=== PATIENT | female | born 1960 | race Caucasian/White ===

== ENCOUNTER 2017-12-28 16:57 | Inpatient (IN) ==
[2017-12-28] MEDS ORDERED: SOLU-MEDROL 125 MG IVP SCH (18:00)
[2017-12-28] MEDS ORDERED: DEXTROSE 5%-1/2NS IV SOLUTION 1,000 ML IV SCH (18:00)
[2017-12-28] MEDS: XOPENEX 1.25 MG NEB SCH ×2 (18:27→23:48)
[2017-12-28] MEDS ORDERED: LEVAQUIN 100 ML IV ONE (18:33)
[2017-12-28] MEDS ORDERED: SOLU-CORTEF 250 MG ONE (18:33)
[2017-12-28] MEDS: PHENERGAN WITH CODEINE 6.25/10 MG/5 ML PO STA (18:41)
[2017-12-28] MEDS: SOLU-CORTEF 250 MG IVP SCH ×2 (18:45→21:45)
[2017-12-28] MEDS: LEVAQUIN 500 MG in PREMIX 100 ML D5W 1 BAG IV SCH (18:47)
[2017-12-28 19:53] VITALS: BMI 25.6
--- NOTE | 2017-12-28 20:03 | DI ---
EXAM: PA and lateral views of the chest HISTORY: Cough COMPARISON: 10/24/2010 FINDINGS: No focal consolidation, pleural effusion or pneumothorax is identified. A left lung calcified granul lashon is seen. The cardiomediastinal silhouette is within normal limits. There is calcified plaque of the aorta. IMPRESSION: No acute cardiopulmonary findings. Evidence of prior granulomatous infection.
[2017-12-28] MEDS ORDERED: TOPROL XL PO SCH (21:00)
[2017-12-28] MEDS ORDERED: TOPROL XL ONE (21:28)
[2017-12-28] MEDS: LEXAPRO PO SCH (21:30)
[2017-12-29] MEDS: PHENERGAN WITH CODEINE 6.25/10 MG/5 ML PO STA (00:57)
[2017-12-29] MEDS: SOLU-CORTEF 250 MG IVP SCH ×3 (04:43→21:10)
[2017-12-29] MEDS: XOPENEX 1.25 MG NEB SCH ×4 (05:01→22:28)
[2017-12-29] MEDS: SYNTHROID PO SCH (06:08)
[2017-12-29] MEDS: PRILOSEC PO SCH ×2 (06:08→17:22)
[2017-12-29] MEDS: PHENERGAN WITH CODEINE 6.25/10 MG/5 ML PO PRN ×3 (08:17→20:53)
[2017-12-29] MEDS ORDERED: SYNTHROID PO SCH (09:00)
--- NOTE | 2017-12-29 09:45 | PCM.PROG ---
Attending Provider: ATTENDING PROVIDER: Dr. CANDELARIO PEÑA This patient is seen with Maki Farr, Nurse Practitioner. DATE OF SERVICE: 12/29/17 SUBJECTIVE: This 57 year old WHITE/ F was hospitalized 12/28/17. The patient is sitting in bed alert. The patient did not sleep very well, still coughing. No fever. REVIEW OF SYSTEMS: CONSTITUTIONAL: Weakness. No night sweats. No malaise, lethargy. No fever or chills. HEENT: Eyes: No visual changes. No eye pain. No eye discharge. ENT: No runny nose. No epistaxis. No sinus pain. No odynophagia. No congestion. RESPIRATORY: Cough and congestion. No hemoptysis. No shortness of breath. CARDIOVASCULAR: No angina symptoms. No CHF symptoms. No atypical chest pain for CAD. No palpitations. No orthopnea.. GASTROINTESTINAL: No abdominal pain. No nausea or vomiting. No diarrhea or constipation. No hematemesis. No hematochezia. GENITOURINARY: No urgency. No frequency. No dysuria. No hematuria. No obstructive symptoms. No discharge. No pain. No significant abnormal bleeding. MUSCULOSKELETAL: No musculoskeletal pain; no joint swelling. NEUROLOGICAL: Awake, alert, oriented to time, place and person. No headache. No neck pain. No syncope. No seizures. No dizziness. PSYCHIATRIC: Not anxious. No depression. No suicidal thoughts. No homicidal thoughts. SKIN: No rash. No lesions. No wounds. ENDOCRINE: No unexplained weight loss. No weight gain. HEMATOLOGIC/LYMPHATIC: No anemia. No purpura. No petechiae. No prolonged or excessive bleeding. No palpable lymph nodes. PHYSICAL EXAMINATION: GENERAL: The patient is awake, alert and oriented, lying in bed in no distress. VITAL SIGNS: Temperature 97.9 F, Pulse 72, Respiratory Rate 18, BP 119/69, Pulse Ox 92% HEENT: Head normocephalic, atraumatic. Eyes: Extraocular muscles are intact. Pupils are equal, round and reactive to light and accommodation. Ears: No lesions. Nose appeared normal. Throat: No exudate or erythema. NECK: Supple. No JVD, no carotid bruit. No lymphadenopathy or thyromegaly. LUNGS: Diminished breath sounds bilaterally with creps on the right. Percussion note normal. Chest symmetrical. HEART: S1, S2, no S3. No murmurs. No cyanosis or clubbing. No ascites. Pulses: Dorsalis pedis and posterior tibial pulses +1 to +2 both sides. ABDOMEN: Soft. Non-tender. Bowel sounds active. No CVA tenderness. No mass felt. EXTREMITIES: No edema. Full range of motion of all extremities, equal. NEUROLOGIC: No focal deficit. Cranial nerves II through XII are grossly intact. No headache, no double vision or headache. SKIN: Not dry. Intact. Turgor-normal. LYMPHATIC: No palpable lymph nodes/no lymphedema. MUSCULOSKELETAL: Normal joints with no swelling. Muscle tone is normal. LAB REVIEW: 12/29/17 04:30 12/29/17 04:30 12/29/17 04:30: Sodium 140, Potassium 4.1, Chloride 105, Carbon Dioxide 22, Anion Gap 17.1, BUN 12, Creatinine 0.91, Estimated GFR (MDRD) 64.00, BUN/ Creatinine Ratio 13.18, Glucose 141 H, Calcium 9.3, Total Bilirubin 0.3, AST 19 , ALT 27, Alkaline Phosphatase 56, Total Protein 7.7, Albumin 3.8, Globulin 3.9 , Albumin/Globulin Ratio 0.97, Triglycerides 96, Cholesterol 188, LDL Cholesterol, Calc 122, VLDL Cholesterol 19, HDL Cholesterol 47, Cholesterol/HDL Ratio 4.0 L, TSH 0.376, Free T4 0.90 12/29/17 04:30: WBC 3.53 L, RBC 3.91 L, Hgb 11.9 L, Hct 34.6 L, MCV 88.5, MCH 30.4, MCHC 34.4, RDW Coeff of Luis 12.2, Plt Count 186, Neutrophils % (Manual) 71.0, Lymphocytes % (Manual) 18.0, Monocytes % (Manual) 9.0, Reactive Lymphocytes 2.0, Plt Morphology Comment Normal, Anisocytosis Not present, RBC Morph Comment Normal 12/28/17 18:09: Sodium 140, Potassium 4.0, Chloride 104, Carbon Dioxide 23, Anion Gap 17.0, BUN 14, Creatinine 0.98, Estimated GFR (MDRD) 58.00, BUN/ Creatinine Ratio 14.28, Glucose 107, Calcium 9.8, Total Bilirubin 0.4, AST 25, ALT 29, Alkaline Phosphatase 61, Total Protein 8.0, Albumin 4.3, Globulin 3.7, Albumin/Globulin Ratio 1.16 12/28/17 18:09: WBC 4.97, RBC 4.15 L, Hgb 12.7, Hct 36.8 L, MCV 88.7, MCH 30.6, MCHC 34.5, RDW Coeff of Luis 12.3, Plt Count 187, Neutrophils % (Manual) 52.0, Band Neutrophils % 3.0, Lymphocytes % (Manual) 27.0, Monocytes % (Manual) 13.0 H , Eosinophils % (Manual) 3.0, Reactive Lymphocytes 2.0, Anisocytosis Not present ASSESSMENT: 1. ACUTE PNEUMONITIS 2. GENERALIZED WEAKNESS 3. DEHYDRATION PLAN: 1. Ativan 1 mg q.h.s. 2. Continue IV steroids and antibiotics Plan and coordination of the patient's care discussed in the presence of Scientific Informatics Analyst and nurse. CONDITION: Stable SCRIBED BY: DEANNE MARCUS Communications Equipment Operator scribed while in presence of service performed by Dr. Peña/Maki Farr APRN on 12/29/17 ([id number])
[2017-12-29] MEDS: LOPRESSOR PO SCH ×2 (10:04→21:01)
[2017-12-29] MEDS: LEVAQUIN 500 MG in PREMIX 100 ML D5W 1 BAG IV SCH (10:04)
[2017-12-29] MEDS: LEXAPRO PO SCH (21:00)
[2017-12-29] MEDS: ATIVAN PO SCH (21:00)
[2017-12-30] MEDS: XOPENEX 1.25 MG NEB SCH ×4 (04:50→23:15)
[2017-12-30] MEDS: SOLU-CORTEF 250 MG IVP SCH (05:48)
[2017-12-30] MEDS: SYNTHROID PO SCH (05:49)
[2017-12-30] MEDS: PRILOSEC PO SCH ×2 (05:49→17:34)
[2017-12-30] MEDS: PHENERGAN WITH CODEINE 6.25/10 MG/5 ML PO PRN ×3 (05:55→22:28)
--- NOTE | 2017-12-30 08:38 | PCM.PROG ---
Attending Provider: ATTENDING PROVIDER: Dr. CANDELARIO PEÑA This patient is seen with Maki Farr, Nurse Practitioner. DATE OF SERVICE: 12/30/17 SUBJECTIVE: This 57 year old WHITE/ F was hospitalized 12/28/17. The patient is lying in bed, alert. She did sleep last night. Coughing and shortness of breath is somewhat improved at rest. She is still short of breath with exertion. Appetite is slowly beginning to improve. She had fever last night. REVIEW OF SYSTEMS: CONSTITUTIONAL: Weakness. No night sweats. No malaise, lethargy. No fever or chills. HEENT: Eyes: No visual changes. No eye pain. No eye discharge. ENT: No runny nose. No epistaxis. No sinus pain. No odynophagia. No congestion. RESPIRATORY: Cough and congestion. No hemoptysis. Shortness of breath with exertion. CARDIOVASCULAR: No angina symptoms. No CHF symptoms. No atypical chest pain for CAD. No palpitations. No orthopnea.. GASTROINTESTINAL: Appetite improving. No abdominal pain. No nausea or vomiting. No diarrhea or constipation. No hematemesis. No hematochezia. GENITOURINARY: No urgency. No frequency. No dysuria. No hematuria. No obstructive symptoms. No discharge. No pain. No significant abnormal bleeding. MUSCULOSKELETAL: No musculoskeletal pain; no joint swelling. NEUROLOGICAL: Awake, alert, oriented to time, place and person. No headache. No neck pain. No syncope. No seizures. No dizziness. PSYCHIATRIC: Not anxious. No depression. No suicidal thoughts. No homicidal thoughts. SKIN: No rash. No lesions. No wounds. ENDOCRINE: No unexplained weight loss. No weight gain. HEMATOLOGIC/LYMPHATIC: No anemia. No purpura. No petechiae. No prolonged or excessive bleeding. No palpable lymph nodes. PHYSICAL EXAMINATION: GENERAL: The patient is awake, alert and oriented, lying in bed in no distress. VITAL SIGNS: Temperature 97.7 F, Pulse 77, Respiratory Rate 20, BP 118/67, Pulse Ox 97% HEENT: Head normocephalic, atraumatic. Eyes: Extraocular muscles are intact. Pupils are equal, round and reactive to light and accommodation. Ears: No lesions. Nose appeared normal. Throat: No exudate or erythema. NECK: Supple. No JVD, no carotid bruit. No lymphadenopathy or thyromegaly. LUNGS: Diminished breath sounds bilaterally. Rales on right improving. Percussion note normal. Chest symmetrical. HEART: S1, S2, no S3. No murmurs. No cyanosis or clubbing. No ascites. Pulses: Dorsalis pedis and posterior tibial pulses +1 to +2 both sides. ABDOMEN: Soft. Non-tender. Bowel sounds active. No CVA tenderness. No mass felt. EXTREMITIES: No edema. Full range of motion of all extremities, equal. NEUROLOGIC: No focal deficit. Cranial nerves II through XII are grossly intact. No headache, no double vision or headache. SKIN: Not dry. Intact. Turgor-normal. LYMPHATIC: No palpable lymph nodes/no lymphedema. MUSCULOSKELETAL: Normal joints with no swelling. Muscle tone is normal. LAB REVIEW: 12/30/17 04:15 12/30/17 04:15 12/30/17 04:15: Sodium 141, Potassium 4.7, Chloride 108 H, Carbon Dioxide 22, Anion Gap 15.7, BUN 13, Creatinine 0.79, Estimated GFR (MDRD) 75.00, BUN/ Creatinine Ratio 16.45, Glucose 119 H, Calcium 9.3, Total Bilirubin 0.2, AST 19 , ALT 25, Alkaline Phosphatase 47, Total Protein 7.2, Albumin 3.7, Globulin 3.5 , Albumin/Globulin Ratio 1.06 12/30/17 04:15: WBC 7.28, RBC 3.79 L, Hgb 11.5 L, Hct 33.9 L, MCV 89.4, MCH 30.3 , MCHC 33.9, RDW Coeff of Luis 12.4, Plt Count 194, Neutrophils % (Manual) 76.0 H , Lymphocytes % (Manual) 19.0, Monocytes % (Manual) 3.0, Basophils % (Manual) 2.0 H, Anisocytosis Not present ASSESSMENT: 1. ACUTE PNEUMONITIS WITH SHORTNESS OF BREATH IMPROVING 2. GENERALIZED WEAKNESS 3. DEHYDRATION, RESOLVED PLAN: 1. Prednisone 20 b.i.d. 2. Ativan 1 mg h.s. 3. D/C Solu-Cortef 4. Continue nebs and IV Levaquin 5. Anticipate d/c home tomorrow Plan and coordination of the patient's care discussed in the presence of Print Finisher and nurse. CONDITION: Stable SCRIBED BY: DEANNE MARCUS, District Gauger scribed while in presence of service performed by Dr. Peña/Maki Farr APRN on 12/30/17 ([id number])
[2017-12-30] MEDS: LEVAQUIN 500 MG in PREMIX 100 ML D5W 1 BAG IV SCH (08:55)
[2017-12-30] MEDS: LOPRESSOR PO SCH ×2 (08:55→21:28)
--- NOTE | 2017-12-30 14:44 | PN ---
DATE OF SERVICE: 12/29/17 SUBJECTIVE: The patient was seen and examined with Nurse Practitioner. She is hospitalized with severe dehydration and acute bronchitis. The patient's condition has improved a lot. PHYSICAL EXAMINATION: HEENT: Head normocephalic, atraumatic. Eyes: Extraocular muscles are intact. Pupils are equal, round and reactive to light and accommodation. Ears: No lesions. Nose appeared normal. Throat: No exudate or erythema. NECK: Supple. No JVD, no carotid bruit. No lymphadenopathy or thyromegaly. LUNGS: Decreased breath sounds but air entry. Clear to auscultation. Percussion note normal. Chest symmetrical. HEART: S1, S2, no S3. No murmurs. No cyanosis or clubbing. No ascites. Pulses: Dorsalis pedis and posterior tibial pulses +1 to +2 both sides. ABDOMEN: Soft. Nontender. Bowel sounds active. No CVA tenderness. No mass felt. EXTREMITIES: No edema. Full range of motion of all extremities, equal. NEUROLOGIC: No focal deficit. Cranial nerves II through XII are grossly intact. No headache, no double vision or headache. SKIN: Not dry. Intact. Turgor - improved. LYMPHATIC: No palpable lymph nodes/no lymphedema. MUSCULOSKELETAL: Normal joints with no swelling. Muscle tone is normal. PLAN: 1. Continue NEBS treatment 2. Steroids 3. Antibiotics TIME SPENT: More than 30 minutes. Plan and coordination of the patient's care discussed in the presence of nurse. SUNIL
[2017-12-30] MEDS: PREDNISONE PO SCH (17:34)
[2017-12-30] MEDS: ATIVAN PO SCH (21:28)
[2017-12-30] MEDS: LEXAPRO PO SCH (21:28)
[2017-12-31] MEDS: XOPENEX 1.25 MG NEB SCH (05:00)
[2017-12-31] MEDS: PHENERGAN WITH CODEINE 6.25/10 MG/5 ML PO PRN (05:38)
[2017-12-31] MEDS: PRILOSEC PO SCH (05:38)
[2017-12-31] MEDS: SYNTHROID PO SCH (05:39)
[2017-12-31 06:02] VITALS: BP 122/68; TEMP 98
[2017-12-31] MEDS: PREDNISONE PO SCH (08:20)
[2017-12-31] MEDS: LOPRESSOR PO SCH (08:20)
[2017-12-31] MEDS: LEVAQUIN 500 MG in PREMIX 100 ML D5W 1 BAG IV SCH (08:20)
--- NOTE | 2017-12-31 09:00 | CM.DICTOOL ---
ADMISSION: 12/28/17 16:57 DISCHARGE: 12/31/17 FINAL DIAGNOSIS ACUTE BRONCHITIS - IMPROVING ACUTE PNEUMONITIS WITH DYSPNEA - IMPROVING DEHYDRATION - RESOLVED HYPERTENSION GERD HYPOTHYROID IBS ANXIETY HYSTERECTOMY LAST VITALS Temp Pulse Resp BP Pulse Ox 98.0 F 79 16 122/68 97 12/31/17 06:00 12/31/17 06:00 12/31/17 06:00 12/31/17 06:00 12/31/17 06:00 CONTINUE THESE MEDICATIONS AT HOME Escitalopram Oxalate (Lexapro) 10 mg PO BEDTIME [facility] Last Admin: 12/30/17 21:28 Dose: 10 mg Levothyroxine Sodium (Synthroid) 75 mcg PO QDAC [facility] Last Admin: 12/31/17 05:39 Dose: 75 mcg Lorazepam (Ativan) 1 mg PO BEDTIME [facility] Last Admin: 12/30/17 21:28 Dose: 1 mg Metoprolol Tartrate (Lopressor) 25 mg PO BID [facility] Last Admin: 12/31/17 08:20 Dose: 25 mg Omeprazole (Prilosec) 20 mg PO BIDAC [facility] Last Admin: 12/31/17 05:38 Dose: 20 mg Promethazine HCl/Codeine (Phenergan With Codeine 6.25/10 Mg/5 Ml) 10 ml PO Q6H PRN PRN Reason: Cough Last Admin: 12/31/17 05:38 Dose: 10 ml LEVAQUIN 500 MG PO DAILY X 7 DAYS - NEW PREDNISONE 20 MG PO BID X 2 DAYS THEN DAILY X 5 DAYS - NEW DISCONTINUED MEDICATIONS: NONE ALLERGIES azithromycin Adverse Reaction (Verified 12/28/17 18:26) cefaclor [From Ceclor] Adverse Reaction (Verified 12/28/17 18:07) Cephalosporins Adverse Reaction (Verified 12/28/17 18:07) clarithromycin [From Biaxin] Adverse Reaction (Verified 12/28/17 18:07) ezetimibe [From Vytorin] Adverse Reaction (Verified 12/28/17 18:07) fenofibrate [From Tricor] Adverse Reaction (Verified 12/28/17 18:07) niacin [From Niaspan Extended-Release] Adverse Reaction (Verified 12/28/17 18:26 ) Penicillins Adverse Reaction (Verified 12/28/17 18:07) rosuvastatin [From Crestor] Adverse Reaction (Verified 12/28/17 18:07) simvastatin [From Vytorin] Adverse Reaction (Verified 12/28/17 18:07) Rzyuaoi-Kfy-Ujr Reductase Inhibitor Adverse Reaction (Verified 12/28/17 18:07) Sulfa (Sulfonamide Antibiotics) Adverse Reaction (Verified 12/28/17 18:07) topiramate [From Topamax] Adverse Reaction (Verified 12/28/17 18:07) NEW PRESCRIPTIONS: NEW MEDICATIONS: 1. LEVAQUIN 500MG TAKE 1 TABLET DAILY X 7 DAYS. TAKE UNTIL GONE. 2. PREDNISONE TAKE 1 TABLET 2 TIMES A DAY FOR 2 DAYS THEN TAKE 1 TABLET DAILY FOR 5 DAYS. TAKE WITH FOOD. SMOKING: N/A; AVOID SECOND HAND SMOKE. DISEASE SPECIFIC EDUCATION: BRONCHITIS PNEUMONIA MEDICATIONS STEROIDS FLUID INTAKE TO AVOID DEHYDRATION IMPORTANCE OF REST LAB REVIEW: 12/31/17 04:30 12/31/17 04:30 12/31/17 04:30: Sodium 142, Potassium 4.2, Chloride 108 H, Carbon Dioxide 23, Anion Gap 15.2, BUN 15, Creatinine 0.78, Estimated GFR (MDRD) 76.00, BUN/ Creatinine Ratio 19.23, Glucose 103, Calcium 9.1, Total Bilirubin 0.2, AST 16, ALT 21, Alkaline Phosphatase 48, Total Protein 6.8, Albumin 3.6, Globulin 3.2, Albumin/Globulin Ratio 1.13 12/31/17 04:30: WBC 9.98, RBC 3.63 L, Hgb 11.1 L, Hct 33.1 L, MCV 91.2, MCH 30.6 , MCHC 33.5, RDW Coeff of Luis 12.6, Plt Count 209, Immature Gran % (Auto) 1.9, Neut % (Auto) 75.9, Lymph % (Auto) 16.1, Park % (Auto) 5.9, Eos % (Auto) 0.0, Baso % (Auto) 0.2, Immature Gran # (Auto) 0.2, Neut # (Auto) 7.6 H, Lymph # ( Auto) 1.6, Park # (Auto) 0.6, Eos # (Auto) 0.0, Baso # (Auto) 0.0 PLAN: DISCHARGE HOME TODAY 12/31/17. CONTINUE HOME MEDICATIONS PER NURSING SHEETS. NEW MEDICATIONS: 1. LEVAQUIN 500MG TAKE 1 TABLET DAILY X 7 DAYS. TAKE UNTIL GONE. 2. PREDNISONE TAKE 1 TABLET 2 TIMES A DAY FOR 2 DAYS THEN TAKE 1 TABLET DAILY FOR 5 DAYS. TAKE WITH FOOD. DIET TOLERATED. ACTIVITY REST AT HOME. MAY RETURN TO WORK ON Thursday01/11/18. FOLLOW UP WITH DR. PEÑA NEXT WEEK. CALL FOR APPOINTMENT [phone]. PATIENT IS A FULL CODE. ALERT AND ORIENTED X 4. STATES SLEPT WELL. Lorri MARTINEZ APRN INTO SEE PATIENT. PATIENT STATES IS READY TO GO HOME TODAY. PLAN OF CARE DISCUSSED PER Lorri MARTINEZ APRN INCLUDING DISCHARGE INSTRUCTIONS OF ABX THERAPY, STEROIDS, RESTING AT HOME AND NO WORK UNTIL THURSDAY. PATIENT VERBALIZES UNDERSTANDING AND AGREEMENT. APPETITE IS GOOD. VITAL SIGNS ARE STABLE. HAS BEEN AFEBRILE. POX 97% ON ROOM AIR. HEART TONES ARE REGULAR. NO C/O PAIN OR DISCOMFORT. LUNGS ARE CLEAR WITH DIMINISHED BREATH SOUNDS. HAS NON-PRODUCTIVE COUGH. IS DYSPNEIC WITH ACTIVITY. ABDOMEN IS SOFT, NON-TENDER WITH BOWEL SOUNDS POSITIVE IN ALL 4 QUADS. LAST BM . PEDAL PULSES POSITIVE WITHOUT EDEMA. HAS SALINE LOCK IN LEFT WRIST SITE IS CLEAR. IS INDEPENDENT WITH ACTIVITY OF DAILY LIVING. CANDELARIO PEÑA MD Lorri MARTINEZ APRN
--- NOTE | 2018-01-01 11:10 | PN ---
DATE OF SERVICE: 12/31/17 SUBJECTIVE: The patient is examined and she says that she slept well last night and yesterday evening she was able to eat an actual full supper. She has been up and about in the room with minimal shortness of breath. She states that she feels like she can go home. Her oxygen saturation has been good and coughing is slightly improved. REVIEW OF SYSTEMS: CONSTITUTIONAL: No night sweats. No fatigue, malaise, lethargy. No fever or chills. Weakness. HEENT: Eyes: No visual changes. No eye pain. No eye discharge. ENT: No runny nose. No epistaxis. No sinus pain. No sore throat. No odynophagia. No congestion. RESPIRATORY: Cough, no congestion. No hemoptysis. Shortness of breath as resolved. CARDIOVASCULAR: No angina symptoms. No CHF symptoms. No atypical chest pain for CAD. No palpitations. No orthopnea. GASTROINTESTINAL: No abdominal pain. No nausea or vomiting. No diarrhea or constipation. No hematemesis. No hematochezia. GENITOURINARY: No urgency. No frequency. No dysuria. No hematuria. No obstructive symptoms. No discharge. No pain. No significant abnormal bleeding. MUSCULOSKELETAL: No musculoskeletal pain; no joint swelling. NEUROLOGICAL: No headache. No neck pain. No syncope. No seizures. No dizziness. PSYCHIATRIC: Not anxious. No depression. No suicidal thoughts. No homicidal thoughts. SKIN: No rash. No lesions. No wounds. ENDOCRINE: No unexplained weight loss. No weight gain. HEMATOLOGIC/LYMPHATIC: No anemia. No purpura. No petechiae. No prolonged or excessive bleeding. No palpable lymph nodes. PHYSICAL EXAMINATION: HEENT: Head normocephalic, atraumatic. Eyes: Extraocular muscles are intact. Pupils are equal, round and reactive to light and accommodation. Ears: No lesions. Nose appeared normal. Throat: No exudate or erythema. NECK: Supple. No JVD, no carotid bruit. No lymphadenopathy or thyromegaly. LUNGS: Diminished breath sounds bilaterally otherwise normal. Clear to auscultation. Percussion note normal. Chest symmetrical. HEART: S1, S2, no S3. No murmurs. No cyanosis or clubbing. No ascites. Pulses: Dorsalis pedis and posterior tibial pulses +1 to +2 both sides. ABDOMEN: Soft. Nontender. Bowel sounds active. No CVA tenderness. No mass felt. EXTREMITIES: No edema. Full range of motion of all extremities, equal. NEUROLOGIC: No focal deficit. Cranial nerves II through XII are grossly intact. No headache, no double vision or headache. SKIN: Not dry. Intact. Turgor - normal. LYMPHATIC: No palpable lymph nodes/no lymphedema. MUSCULOSKELETAL: Normal joints with no swelling. Muscle tone is normal. ASSESSMENT: 1. Acute pneumonitis 2. Shortness of breath with exertion 3. Generalized weakness. PLAN: 1. Will discharge home 2. She will go home on Levaquin 500mg PO daily for the next 7 days 3. Prednisone 20mg twice a a day for the next 3 days and then daily for he next 4 days 4. She is instructed to stay inside. 5. She has Phenergan with codeine cough syrup 6. Will followup with her next week in the office. TIME SPENT: More than 30 minutes. Plan and coordination of the patient's care discussed in the presence of nurse. SUNIL
--- NOTE | 2018-01-01 12:26 | DS ---
DATE OF SERVICE: 12/31/17 FINAL DIAGNOSIS: 1. Acute Bronchitis-improving 2. Acute pneumonitis with Dyspnea-improving 3. Dehydration-resolved 4. Hypertension 5. GERD 6. Hypothyroidism 7. IBS 8. Anxiety 9. Hysterectomy LAST VITALS: Temperature 98, pulse 79, Respiratory 16, blood pressure 122/68 and pulse ox 97% . DISCHARGE INSTRUCTIONS: Discharge home today. Continue home medications per nursing sheets. Followup with Dr. Alvarado Next week. Call for Appointment. MEDICATIONS AT DISCHARGE: Lexapro 10mg PO bedtime Synthroid 75mcg PO QDAC Ativan 1mg PO bedtime Lopressor 25mg Po twice a day Prilosec 20mg PO twice a day Phenergan with Codeine 6.25/10mg/5ML 10ml PO Q 6 hours PRN Levaquin 500mg PO daily x7 days Prednisone 20mg PO twice a day x2 days then daily x5 days ALLERGIES: Azithromycin Cefaclor Cephalosporin Clarithromycin Exetimibe Fenofibrate Niacin Penicillins Rosuvastatin Simvastatin Statins Sulfa Topiramate NEW PRESCRIPTIONS: Levaquin 500mg take one tablet daily x7 days. Take until gone Prednisone take one tablet two times a day for 2 days then take one tablet daily for 5 days. Take with food. DIET INSTRUCTIONS: As tolerated ACTIVITY: Rest at home. May return to work on Thursday01/11/18 SMOKING: N/A avoid second hand smoke. DISEASE SPECIFIC EDUCATION: Bronchitis Pneumonia Medication Steroids Fluid intake to avoid dehydration Importance of rest HOSPITAL COURSE: This is a 57 year old white female who is a direct admit from our office. She had been treated as an outpatient with acute bronchitis and put on oral Prednisone and Z-baldemar. She presented to our office with worsening cough and congestion. She had temperature of 101 and clinically presented with pneumonia with rales on the right side. She had been shortness of breath with exertion and unable to eat or drink due to nausea. She was admitted and placed on Levaquin 500mg IV daily along with Solu-Cortef 125mg IV Q 8 hours. Started on Xopenex NEB treatments Q 6 hours. IV fluids normal saline at 100cc an hour and given Tylenol PRN for fever. She did have a fever for the first two days up to 100 for the past 24 hours it has resolved. Her cough has somewhat improved. She was very short of breath with exertion and very weak on admission. Over the past two days this is slightly improved. Yesterday evening she stated she was able to get up and about in the her without any shortness of breath and no oxygen. She has been able to rest well with the help of cough syrup. She states that she feels the nebulization treatments have helps significantly. Yesterday due to her improvement I did make her Prednisone PO 20mg twice a day and discontinued IV Solu-Cortef and she did tolerated this well. IV Levaquin seems to have helped her improve. Today she is in stable condition and WBC is now normal at 9.9, hgb 11.1, hct 33.1, sodium 142, potassium 4.2, BUN 15, creatinine 0.78. Her dehydration has resolved and shortness of breath significantly improved. She is going to be discharged home in stable condition with Levaquin 500mg PO daily for the next 7 days, Prednisone 20mg PO twice a day for 3 days and then daily times four days. She has cough medicine at home. She is instructed to stay inside in the cool and continue with increased rest. Return if fever returns. Will followup with her next week in the office. TIME SPENT: More than 60 minutes. SUNIL
== END 2017-12-31 09:52 | disposition home or self-care (01) | DRG 202 ==
LOC: MEDSURG A 16:57
PROVIDERS: ADMIT Internal Medicine; ATTEND Internal Medicine
DX: J20.9 Acute bronchitis, unspecified (principal); J18.9 Pneumonia, unspecified organism; R50.9 Fever, unspecified; R06.00 Dyspnea, unspecified; E86.0 Dehydration; R53.1 Weakness; I10 Essential (primary) hypertension; K21.9 Gastro-esophageal reflux disease without esophagitis; E03.9 Hypothyroidism, unspecified; K58.9 Irritable bowel syndrome, unspecified; F41.9 Anxiety disorder, unspecified; Z79.899 Other long term (current) drug therapy
CPT/HCPCS: 36415; 80053; 80061; 84439; 84443; 85007; 85025; 86713; 86738; 93005; 93010; 94640

== ENCOUNTER 2018-11-04 12:37 | Observation (INO) ==
[2018-11-04 13:05] VITALS: BMI 25.4
[2018-11-04] MEDS ORDERED: ZOFRAN 4 MG/2 ML IVP PRN (13:19)
[2018-11-04] MEDS ORDERED: LOMOTIL PO PRN (13:19)
[2018-11-04] MEDS ORDERED: SODIUM CHLORIDE 1,000 ML IV SCH (13:30)
[2018-11-04] MEDS: PROTONIX IV IVP SCH (13:30)
--- NOTE | 2018-11-04 15:24 | CT ---
EXAM: CT of the abdomen pelvis with and without contrast History: Abdominal pain with nausea and vomiting. Comparison: CT abdomen pelvis 11/26/2012 Technique: Multiplanar CT images through the abdomen pelvis were obtained with and without the admin istration of IV contrast Findings: Lung bases are free of consolidation. Calcified granuloma within the left lower lobe. No acute osseous abnormalities. No renal stones and no hydronephrosis. No ureteral calculi. No renal masses. No gallstones identified by CT. Calcified granulomas within the spleen. No liver lesions. Atherosclerotic vascular calcifications. Pancreas is unremarkable. Adrenal glands are unr emarkable. No bowel obstruction. No bladder wall thickening. The appendix is normal. No perirecta l inflammation. Nondilated fluid filled loops of small bowel. There are several small sub-centimete r mesenteric lymph nodes. No pathologically enlarged lymph nodes. Uterus is not seen and likely has been surgically removed. Impression: Multiple small mesenteric lymph nodes could be reactive from a mild enteritis or indicat e mesenteric adenitis. There is no bowel obstruction.
--- NOTE | 2018-11-04 15:47 | DI ---
Exam: Two views of the chest. Comparison: Chest x-ray performed 12/18/2017. Reason for exam: Cough. FINDINGS: No pneumothorax, pleural effusion, or focal consolidation. The cardiac silhouette is unch anged. The imaged osseous structures appear grossly unremarkable without acute fracture. Impression: No acute cardiopulmonary process.
[2018-11-04] MEDS: LIBRAX 5/2.5 MG PO SCH (16:40)
[2018-11-04] MEDS: SODIUM CHLORIDE 0.9%-KCL 40MEQ 1,000 ML IV SCH (19:23)
[2018-11-04] MEDS: LOPRESSOR PO SCH (20:32)
[2018-11-04] MEDS ORDERED: NON-FORMULARY MEDICATION (Melatonin [Melatonin] 5 MG) PO SCH (21:00)
[2018-11-04] MEDS ORDERED: BENADRYL PO SCH (21:00)
[2018-11-04] MEDS ORDERED: LEXAPRO PO SCH ×2 (21:00)
[2018-11-05] MEDS: SODIUM CHLORIDE 0.9%-KCL 40MEQ 1,000 ML IV SCH (05:04)
[2018-11-05] MEDS: LIBRAX 5/2.5 MG PO SCH (05:44)
[2018-11-05] MEDS ORDERED: PRILOSEC PO SCH (06:30)
[2018-11-05] MEDS ORDERED: SYNTHROID PO SCH (06:30)
[2018-11-05] MEDS ORDERED: MULTIVITAMIN TABLET PO SCH (08:00)
[2018-11-05] MEDS: LOPRESSOR PO SCH (09:00)
[2018-11-05] MEDS ORDERED: NON-FORMULARY MEDICATION (Multivitamin 1 CAP) PO SCH (09:00)
[2018-11-05] MEDS: PROTONIX IV IVP SCH (09:16)
--- NOTE | 2018-11-05 09:16 | PCM.PROG ---
Attending Provider: ATTENDING PROVIDER: Dr. CANDELARIO PEÑA DATE OF SERVICE: 11/05/18 SUBJECTIVE: This 57 year old WHITE/ F was hospitalized 11/04/18 with acute gastroenteritis and dehydration. The patient had nausea and vomiting times 5 days prior to admission and was dehydrated with dry skin, dry mucus membranes. Hydration status improved. No diarrhea since hospitalization and no vomiting but hasn't eaten much. She is on IV fluids with potassium supplement. REVIEW OF SYSTEMS: CONSTITUTIONAL: No night sweats. No fatigue, malaise, lethargy. No fever or chills. HEENT: Eyes: No visual changes. No eye pain. No eye discharge. ENT: No runny nose. No epistaxis. No sinus pain. No odynophagia. No congestion. RESPIRATORY: No cough, no congestion. No hemoptysis. No shortness of breath. CARDIOVASCULAR: No angina symptoms. No CHF symptoms. No atypical chest pain for CAD. No palpitations. No orthopnea.. GASTROINTESTINAL: No abdominal pain. Mild nausea. No vomiting. No diarrhea or constipation. No hematemesis. No hematochezia. GENITOURINARY: No urgency. No frequency. No dysuria. No hematuria. No obstructive symptoms. No discharge. No pain. No significant abnormal bleeding. MUSCULOSKELETAL: No musculoskeletal pain; no joint swelling. NEUROLOGICAL: Awake, alert, oriented to time, place and person. No headache. No neck pain. No syncope. No seizures. No dizziness. PSYCHIATRIC: Not anxious. No depression. No suicidal thoughts. No homicidal thoughts. SKIN: No rash. No lesions. No wounds. ENDOCRINE: No unexplained weight loss. No weight gain. HEMATOLOGIC/LYMPHATIC: No anemia. No purpura. No petechiae. No prolonged or excessive bleeding. No palpable lymph nodes. PHYSICAL EXAMINATION: GENERAL: The patient is awake, alert and oriented, lying in bed in no distress. VITAL SIGNS: Temperature 98.1 F, Pulse 62, Respiratory Rate 18, BP 161/77, Pulse Ox 98% HEENT: Head normocephalic, atraumatic. Eyes: Extraocular muscles are intact. Pupils are equal, round and reactive to light and accommodation. Ears: No lesions. Nose appeared normal. Throat: No exudate or erythema. NECK: Supple. No JVD, no carotid bruit. No lymphadenopathy or thyromegaly. LUNGS: Clear to auscultation. Percussion note normal. Chest symmetrical. HEART: S1, S2, no S3. No murmurs. No cyanosis or clubbing. No ascites. Pulses: Dorsalis pedis and posterior tibial pulses +1 to +2 both sides. ABDOMEN: Soft. Non-tender. Bowel sounds active. No CVA tenderness. No mass felt. EXTREMITIES: No edema. Full range of motion of all extremities, equal. NEUROLOGIC: No focal deficit. Cranial nerves II through XII are grossly intact. No headache, no double vision or headache. SKIN: Warm and dry. Intact. Turgor-normal. LYMPHATIC: No palpable lymph nodes/no lymphedema. MUSCULOSKELETAL: Normal joints with no swelling. Muscle tone is normal. LAB REVIEW: 11/04/18 13:40 11/04/18 13:40 11/04/18 19:12: Urine Color Yellow, Urine Clarity Clear, Urine pH 6.0, Ur Specific [place] <=1.005, Urine Protein Negative, Urine Glucose (UA) Negative, Urine Ketones Negative, Urine Blood 1+, Urine Nitrite Negative, Urine Bilirubin Negative, Urine Urobilinogen 0.2, Ur Leukocyte Esterase Negative, Urine Microscopic RBC 0-2, Ur Squamous Epith Cells 0-2 11/04/18 13:40: Sodium 137.5, Potassium 3.33 L, Chloride 100.5, Carbon Dioxide 26.2, Anion Gap 14.13, BUN 15.4, Creatinine 0.86, Estimated GFR (MDRD) 68.00, BUN/Creatinine Ratio 17.90, Glucose 92.1, Calcium 9.06, Total Bilirubin 0.40, AST 58.1 H, ALT 57.3 H, Alkaline Phosphatase 58.6, Total Protein 8.09, Albumin 4.73, Globulin 3.36, Albumin/Globulin Ratio 1.40 11/04/18 13:40: WBC 4.66, RBC 4.36, Hgb 13.0, Hct 37.5, MCV 86.0, MCH 29.8, MCHC 34.7, RDW Coeff of Luis 12.3, Plt Count 212, Immature Gran % (Auto) 0.4, Neut % (Auto) 46.0, Lymph % (Auto) 29.6, [place] % (Auto) 22.7 H, Eos % (Auto) 0.9 , Baso % (Auto) 0.4, Immature Gran # (Auto) 0.0, Neut # (Auto) 2.1, Lymph # ( Auto) 1.4, [place] # (Auto) 1.1, Eos # (Auto) 0.0, Baso # (Auto) 0.0 ASSESSMENT: 1. Acute gastroenteritis seems to be resolving. PLAN: 1. Regular diet. Watch how she does with breakfast and lunch and advised to be up and about and very likely will be discharged this afternoon. Plan and coordination of the patient's care discussed in the presence of Music Publisher and nurse. CONDITION: Stable SCRIBED BY: DEANNE MARCUS Tenant Relations Coordinator scribed while in presence of service performed by Dr. CANDELARIO PEÑA on 11/05/18 ([id number])
[2018-11-05 10:28] VITALS: BP 162/70; TEMP 98.2
--- NOTE | 2018-11-05 11:14 | PN ---
DATE OF SERVICE: 11/04/18 SUBJECTIVE: The patient was seen and examined with the nurse practitioner. The patient is admitted with severe gastroenteritis. She will be hydrated, have stool cultures and will also do CT scan of the abdomen. CONDITION: Stable. TIME SPENT: More than 30 minutes. Plan and coordination of the patient's care discussed in the presence of nurse. SUNIL
--- NOTE | 2018-11-05 13:10 | HP ---
DATE OF SERVICE: 11/04/18 REASON FOR HOSPITALIZATION/HISTORY OF PRESENT ILLNESS: Started Thursday night with vomiting and diarrhea. Still with diarrhea and vomiting. Has stopped bloody diarrhea at times. The patient has lost 6 pounds since Thursday. She tried some Imodium, no help. PAST MEDICAL HISTORY: Hypertension Dyslipidemia COPD Anemia Hypothyroidism Fibromyalgia Cervical muscle spasms. PAST SURGICAL HISTORY: Hysterectomy D&C 1996 Laser Laparoscopy 1996 REVIEW OF SYSTEMS: CONSTITUTIONAL: No fever, Fatigue. Chills. HEENT: No sinus drainage, no sore throat. RESPIRATORY: No cough, no congestion. CARDIOVASCULAR: No atypical chest pain for coronary artery disease. No angina , CHF symptoms, palpitations or shortness of breath. GASTROINTESTINAL: No melena or abdominal pain. Diarrhea. GENITOURINARY: No hematuria, no prostatism, no polyuria. CIDER PRESS OPERATOR: No blackout, Dizziness, no headache, no double vision. MUSCULOSKELETAL: No osteoarthritis pain, no joint swelling. ENDOCRINE: Weight loss of 6 pounds, no weight gain. SKIN: Not dry, no rash. PSYCHIATRIC: Not anxious, no depression, no suicidal thoughts, no homicidal thoughts. SOCIAL HISTORY: Marital Status: . Alcohol Usage: No. Tobacco Usage: Quit. FAMILY HISTORY: Father Mother living Brother 1 healthy hypertension MEDICATIONS: Vitamins Librax twice a day PRN Metoprolol 25mg PO twice a day Omeprazole 20mg daily ALLERGIES: Azithromycin Cefaclor Cephalosporin Clarithromycin Ezetimibe Fenofibrate Niacin Penicillin Rosuvastatin Simvastatin Statins Sulfa Topamax PHYSICAL EXAMINATION: V/S: Pulse 72, blood pressure 140/70, temperature 98.4, GENERAL APPEARANCE: Oriented times three. HEENT: Pale, dry mucosa membrane. NECK: No JVP, no bruits. RESPIRATORY: Decreased breath sounds. CARDIOVASCULAR: S1, S2, no S3, no murmurs. No cyanosis, clubbing. No ascites. GI/ABDOMEN: No tenderness. Bowel sounds are active. EXTREMITIES: edema, pulses +1, equal. CIDER PRESS OPERATOR: Deep tendon reflexes, sensory, motor and gait all normal. RECTAL: Patient refused/PELVIC: hysterectomy, advised yearly. Mammogram 2011 [facility]: . ASSESSMENT: 1. Dehydration 2. Acute gastroenteritis 3. Depression 4. Fatter Liver 5. Hypertension 6. Dyslipidemia 7. COPD 8. Anemia 9. Hypothyroidism 10.Fibromyalgia 11.G.A.D. PLAN: 1. Admit 2. IV normal saline @100cc and hour 3. Protonix 40mg IV daily 4. Routine telemetry x24 hours 5. CBC and CMP now and daily 6. Stool for culture 7. Chest x-ray 8. U/A 9. Zofran 4mg IV Q 6 hours PRN 10.BRAT/BLAND regular diet 11.Lomotil 2.5 PO Q 8 hours PRN 12.Continue home medications 13.CT of abdomen and pelvis with and without contrast. TIME SPENT: More than 70 minutes. MTDD
--- NOTE | 2018-11-09 11:52 | SSS ---
DATE OF SERVICE: 11/05/18 REASON FOR ADMISSION: Acute gastroenteritis, dehydration, hypertension. HISTORY OF PRESENT ILLNESS: The patient has been ill for the past 5-6 days with nausea, vomiting and diarrhea. She is unable to tolerate oral intake. Skin and mucosa membrane dry. Nausea and vomiting from 10-31-18 to 11-02-18. Diarrhea from 10/31/18 to . She complains of high blood pressure in office. REVIEW OF SYSTEMS: CONSTITUTIONAL: No night sweats. No fatigue, malaise, lethargy. No fever or chills. Weakness. HEENT: Eyes: No visual changes. No eye pain. No eye discharge. ENT: No runny nose. No epistaxis. No sinus pain. No sore throat. No odynophagia. No ear pain. No congestion. RESPIRATORY: No cough, no congestion. No hemoptysis. No shortness of breath. CARDIOVASCULAR: No angina symptoms. No CHF symptoms. No atypical chest pain for CAD. No palpitations. No orthopnea. GASTROINTESTINAL: No abdominal pain. Nausea and vomiting. Diarrhea. No hematemesis. No hematochezia. Poor intake. GENITOURINARY: No dysuria. No hematuria. No obstructive symptoms. No discharge. No pain. No significant abnormal bleeding. Abdominal pain diffused cramping. MUSCULOSKELETAL: No musculoskeletal pain. No joint swelling. NEUROLOGICAL: Awake, alert, oriented to time, place and person. No headache. No neck pain. No syncope. No seizures. No dizziness. PSYCHIATRIC: Not anxious. No depression. No suicidal thoughts. No homicidal thoughts. SKIN: No rash. No lesions. No wounds. Dry Skin with tenting. ENDOCRINE: No unexplained weight loss. No weight gain. HEMATOLOGIC/LYMPHATIC: No anemia. No purpura. No petechiae. No prolonged or excessive bleeding. No palpable lymph nodes. PAST HISTORY: Fatty liver IBS GERD Dyslipidemia Anemia COPD Hypothyroidism Fibromyalgia CAD LAST Trigger thumb release PERSONAL/FAMILY HISTORY/SOCIAL HISTORY: The patient resides at home with spouse. Works outside the home. Provides own transportation. Independent with ADL's. No alcohol, former smoker none for 9 years. Requires no DMC, no Home Health and No home demonstrator. PHYSICAL EXAMINATION: GENERAL: The patient is 57 year old female. Height 5'5, weight 153 pounds. VITAL SIGNS: Blood pressure right 174/92, temperature 97.7, heart rate 71, respiratory rate 16 and saturation on room air 98%. HEENT: Head normocephalic, atraumatic. Eyes: Extraocular muscles are intact. Pupils are equal, round and reactive to light and accommodation. Ears: No lesions. Nose appeared normal. Throat: No exudate or erythema. NECK: Supple. No JVD, no carotid bruit. No lymphadenopathy or thyromegaly. LUNGS: Diminished breath sounds. Clear to auscultation. Percussion note normal. Chest symmetrical. HEART: S1, S2, no S3. No murmurs. No cyanosis or clubbing. No ascites. Pulses: Dorsalis pedis and posterior tibial pulses +1 to +2 bilaterally. ABDOMEN: Soft. Nontender. Bowel sounds active. No CVA tenderness. No mass felt. EXTREMITIES: No edema. Full range of motion of all extremities, equal. NEUROLOGIC: No focal deficit. Cranial nerves II through XII are grossly intact. No headache, no double vision or headache. SKIN: Not dry. Intact. Turgor - normal. LYMPHATIC: No palpable lymph nodes/no lymphedema. MUSCULOSKELETAL: Normal joints with no swelling. Muscle tone is normal. Old/present records reviewed: Yes. Office records reviewed Yes. EDUCATION CARRIED OUT ABOUT: Hypertension Gastroenteritis Dehydration Home medications New prescription Followup. ALLERGIES: Penicillin Cephalosporin Sulfa Statin Niacin Ceclor Biaxin Vytorin Azithromycin Tricor Topamax Crestor MEDICATIONS: Librax Benadryl Lexapro Repatha syringe Melatonin Lopressor Multivitamin Prilosec LABS/EKG'S/X-RAY/ECHO/ABG: WBC 3.69, hgb 11.5, hct 33.2, plt count 184, Sodium 140.8, potassium 3.86, chloride 109.6, bicarb 22.8, BUN 10.5, creatinine 0.67. AST 41.4, ALT 48.3, Total bilirubin 0.23, Alkaline phosphatase 50.3. U/A +1 blood. Chest x-ray no acute cardio pulmonary process. CT abdomen and pelvis with and without multiple mesenteric lymph nodes could be reactive from mild enteritis or indicate mesenteric adenitis PROGRESS NOTES: See EMR. Case Discussed with Attending Physician: Yes DIAGNOSES: 1. Acute Gastroenteritis 2. Acute Dehydration RECOMMENDATIONS/PLAN: 1. Discharge today 2. PTO 11/10/18 at 1:15 3. Resume home medications 4. New prescription for Lomotil 2.5mg PO three times a day PRN for diarrhea, Zofran 4mg OOT Q 6 hours PRN for nausea and vomiting 5. Resting at home 6. Increase activity to toleration 7. Diet as tolerated TIME SPENT: More than 70 minutes. MTDD
[2018-11-09] MEDS ORDERED: EVOLOCUMAB INJ SCH (13:45)
== END 2018-11-05 14:12 | disposition home or self-care (01) ==
LOC: INTOOBSV 12:37 → MEDSURG B 12:37
PROVIDERS: ADMIT Internal Medicine; ATTEND Internal Medicine
DX: K52.9 Noninfective gastroenteritis and colitis, unspecified (principal); E86.0 Dehydration; I10 Essential (primary) hypertension; F32.9 Major depressive disorder, single episode, unspecified; K76.0 Fatty (change of) liver, not elsewhere classified; E78.5 Hyperlipidemia, unspecified; J44.9 Chronic obstructive pulmonary disease, unspecified; D64.9 Anemia, unspecified; E03.9 Hypothyroidism, unspecified; M79.7 Fibromyalgia
CPT/HCPCS: 36415; 80053; 81001; 85025; 93005; 93010